=== PATIENT | female | born 1970 | race Caucasian/White ===

== ENCOUNTER 2018-03-18 11:43 | Outpatient (CLI) | payer OTHER ==
--- NOTE | 2018-03-18 14:01 | Ultrasound Report ---
Pelvic and gestational sonography color History: Pelvic pain. Findings: Uterus is anteverted and measures 11.1 x 4.7 and a 5.7 cm. Endometrial thickness 2.9 mm. Minimal fluid in endometrium. Nabothian cysts in cervix. Right ovary 2.3 x 1.6 x 1.8 cm bases to the right ovary measures 1 x 0.9 x 0.9 cm. Left ovary not visualized but the Impression: Minimal fluid in the endometrial. Nabothian cysts in cervix.
== END 2018-03-18 11:44 | disposition home or self-care (01) ==
LOC: SPVIMAG 11:43
DX: N88.8 Other specified noninflammatory disorders of cervix uteri (principal); I10 Essential (primary) hypertension; E78.00 Pure hypercholesterolemia, unspecified; Z90.89 Acquired absence of other organs
CPT/HCPCS: 76830; 76856